=== PATIENT | male | born 1960 | race Caucasian/White ===

== ENCOUNTER 2021-06-28 12:15 | Emergency (ER) | payer OTHER, SELFPAY ==
[2021-06-28] VITALS (17 sets, daily range): BP systolic 157–188; BP diastolic 78–98; PULSE 80–87; RESP 16–20; TEMP 37.5; O2SAT 91–99
--- NOTE | ~2021-06-28 | XR_ITS ---
EXAMINATION: XR chest 1V portable DATE: 06/28/2021 15:01 INDICATION: Right lower quadrant abdominal pain. TECHNIQUE: A single frontal view of the chest was obtained on 2 radiographs. COMPARISON: Chest 2 views 02/27/2010, chest CT 07/07/2007 FINDINGS: There are lucencies in the lungs, consistent with emphysema. A calcified left lung nodule a nd calcified left hilar lymph nodes are consistent with old granulomatous disease. No pleural effusio n or pneumothorax. The heart size is normal. IMPRESSION: 1. Emphysema. Reviewed, dictated and finalized at location A. ENT CARE SECRETARY IMPRESSION: 1. Emphysema.
--- NOTE | ~2021-06-28 | CT_ITS ---
EXAMINATION: CT abdomen pelvis w con DATE: 06/28/2021 16:52 INDICATION: Right upper quadrant abdominal pain. TECHNIQUE: Computed tomography (CT) of the abdomen and pelvis was performed with 100 mL Omnipaque 350 intravenous contrast. Automated exposure control and iterative reconstruction technique were employe d. The dose-length product was 770.71 mGy-cm. COMPARISON: Chest CT 07/07/2007 FINDINGS: The visualized portions of the lung bases demonstrate emphysema. Calcified left lung nodule s and calcified left hilar lymph nodes are consistent with old granulomatous disease. There is mild d ependent atelectasis on the right. No pleural effusion. The heart size is normal. No pericardial effu oswaldo. The liver demonstrates a nodular surface contour, consistent with cirrhosis. Calcifications in the spleen are consistent with old granulomatous disease. The gallbladder, pancreas, and adrenal glan ds are normal. There are cysts in the kidneys measuring up to 9 mm on the left. There is an 11 mm mas s in left kidney lower pole measuring soft tissue attenuation. There is an umbilical hernia containin g fat. There is prominent fat in right inguinal canal that may be a hernia. The prostate is mildly en larged. There are no dilated loops of bowel. The appendix is normal. Paraesophageal varices are noted . There are no pathologically enlarged lymph nodes. There is no free intraperitoneal fluid. There is moderate thoracic spondylosis and mild lumbar spondylosis. IMPRESSION: 1. Cirrhosis of the liver with portal venous hypertension. 2. 11 mm left kidney mass, which may be a hemorrhagic cyst or a neoplasm. Abdomen CT without and with contrast is recommended. Reviewed, dictated and finalized at location A. POUNCER MACHINE OPERATOR IMPRESSION: 1. Cirrhosis of the liver with portal venous hypertension. 2. 11 mm left kidney mass, which may be a hemorrhagic cyst or a neoplasm. Abdom en CT without and with contrast is recommended.
[2021-06-28 16:01] LABS: Basophils Absolute Auto 0.1 K/mm3 (0.0-0.1); Basophils Percent Auto 0.5 % (0.2-1.2); Eosinophils Absolute Auto 0.1 K/mm3 (0-0.3); Eosinophils Percent Auto 1.2 % (0-4.4); Hematocrit 43.9 % (42.0-52.0); Hemoglobin 14.7 g/dL (14.0-18.0); Immature Granulocyte Absolute 0.04 K/mm3 (0.00-0.031); Immature Granulocyte Percent A 0.4 % (0-0.5); Lymphocytes Absolute Auto 2.48 K/mm3 (0.9-3.2); Lymphocytes Percent Auto 21.8 % (18.3-44.2); Mean Corpuscular HGB Conc 33.5 g/dl (32-36); Mean Corpuscular Hemoglobin 30.8 pg (26-34); Mean Platelet Volume 9.1 fl (7.4-10.4); Monocytes Absolute Auto 1.2 K/mm3 (0.1-0.6); Monocytes Percent Auto 10.9 % (2.6-8.5); Neutrophils Absolute Auto 7.4 K/mm3 (1.3-6.7); Neutrophils Percent Auto 65.2 % (45.5-73.1); Platelet Count Result 257 k/mm3 (150-375); Red Blood Count 4.77 M/mm3 (4.6-6.20); Red Cell Distribution Width 13.5 % (11.5-14.5); White Blood Count 11.4 K/mm3 (4.5-10.0)
[2021-06-28 16:09] LABS: Alanine Aminotransferase 18 U/L (4-50); Albumin Level 4.9 g/dL (3.5-5.1); Alkaline Phosphatase 84 U/L (38-126); Anion Gap 9 mmol/L (8-16); Aspartate Amino Transferase 28 U/L (17-59); Bilirubin,Total 0.7 mg/dL (0.2-1.3); Blood Urea Nitrogen 13 mg/dL (9-20); Calcium 9.5 mg/dL (8.4-10.2); Carbon Dioxide 30 mmol/L (22-30); Chloride 101 mmol/L (98-107); Estimated CRCL calculation 92 ml/min; Estimated Glomerular Filt Rate > 60; Glucose 92 mg/dL (65-110); Lipase 53 U/L (23-300); Sodium 140 mmol/L (137-145)
[2021-06-28] MEDS: ONDANSETRON INJ 4 MG/2 ML VIAL IV PUSH (16:09)
[2021-06-28] MEDS: HYDROmorphone HCL INJ (*CRX) 1 MG/ML SYR IV PUSH (16:10)
--- NOTE | 2021-06-28 16:58 | ED.ABDPAIN ---
HPI - Abdominal Pain General Chief Complaint: Abdominal Pain Stated Complaint: RUQ ABD PAIN X1D Time Seen by Provider: 06/28/21 15:08 Source: patient, family and RN notes reviewed Limitations: no limitations History of Present Illness HPI narrative: 61-year-old male presents to the emergency room evaluation of right upper quadrant pain that woke him from sleep at approximately 1:30 in the morning. Patient has no prior history of gallbladder disease. Patient states while he was sleeping he had onset of left upper quadrant pain. Patient does report associated nausea but denies any vomiting. Patient does report history of hepatitis C approximately 10 years ago for which he was treated with interferon. Patient also has history cirrhosis for which he has not had follow-up with a GI physician since his diagnosis. Related Data Allergies Allergy/AdvReac Type Severity Reaction Status Date / Time No Known Allergies Allergy Mild Verified 02/27/10 12:54 Review of Systems Review of Systems: CONSTITUTIONAL: Denies fever, chills, or sweats. EYES: Denies visual changes, redness, or discharge. ENT: Denies rhinorrhea, congestion, sore throat, or otalgia. CARDIOVASCULAR: Denies chest pain, palpitations, or edema. RESPIRATORY: Denies cough or dyspnea. GASTROINTESTINAL: Right upper quadrant abdominal pain with associated nausea GENITOURINARY: Denies dysuria or hematuria. SKIN: Denies rash or itching. MUSCULOSKELETAL: Denies back pain, joint pain, or myalgia. Exam Narrative: APPEARANCE: Well appearing, no pain, no distress, well-nourished. HEAD: normocephalic, atraumatic. EYES: PERRLA/EOMI, conjunctivae clear. NECK: Supple. No adenopathy, no masses. RESPIRATORY: Airway patent, respirations nonlabored. Clear to auscultation bilaterally, no rales, rhonchi, wheezing. CARDIOVASCULAR: Regular rate and rhythm without murmurs rubs or gallops. ABDOMINAL: Right upper quadrant tenderness to palpation. Otherwise benign abdomen. MUSCULOSKELETAL: Moves all extremities. Strength/ROM intact, No edema, No calf tenderness. NEURO: Alert. Cranial nerves II through XII intact. SKIN: Warm, dry. Normal Color Course Course Emergency Course: Patient was updated on the results of his imaging. Patient states he no longer has a GI physician that he follows up with. I did discuss the case with the nurse practitioner on-call for the patient's primary care physician. They were made aware of the patient's need to have follow-up with GI and additionally have follow up and imaging for the potential cyst on his kidney. Patient was updated on the plan for discharge home. Patient's pain was controlled in the emergency department. Patient was provided pain meds for home. All questions and concerns were addressed. Patient was well-appearing and in no distress at time of discharge from emergency room. Vital Signs Vital signs: Vital Signs Temperature 99.5 F 06/28/21 12:40 Pulse Rate 87 06/28/21 12:40 Respiratory Rate 16 06/28/21 12:40 Blood Pressure 177/98 H 06/28/21 12:40 Pulse Oximetry 99 06/28/21 12:40 Temperature 99.5 F 06/28/21 12:40 Pulse Rate 80 06/28/21 14:52 Respiratory Rate 20 06/28/21 14:52 Blood Pressure 164/94 H 06/28/21 15:16 Pulse Oximetry 91 06/28/21 18:15 MDM - Abdominal Pain Differential Diagnosis Differential diagnosis: Likely abdominal pain Lab Data Attestation: I reviewed the patient's lab results. Result diagrams: 06/28/21 15:40 06/28/21 15:40 Labs: Lab Results 06/28/21 06/28/21 06/28/21 Range/Units 15:40 15:40 18:10 WBC 11.4 H (4.5-10.0) K/mm3 RBC 4.77 (4.6-6.20) M/mm3 Hgb 14.7 (14.0-18.0) g/dL Hct 43.9 (42.0-52.0) % MCV 92.0 (80-100) fl MCH 30.8 (26-34) pg MCHC 33.5 (32-36) g/dl RDW 13.5 (11.5-14.5) % Plt Count 257 (150-375) k/mm3 MPV 9.1 (7.4-10.4) fl Immature Gran % (Auto) 0.4 (0-0.5) % Neut % (Auto) 65.2 (45.5-7
[2021-06-28] MEDS: SODIUM CHLORIDE 0.9% IV 1,000 ML 999 ML IV CONT (17:36)
[2021-06-28 18:36] LABS: Add Urine Microscopic? YES; Appearance Urine Clear (Clear); Bilirubin Urine Negative (Negative); Blood Urine 2+ (Negative); Color Urine Yellow (Yellow); Glucose Urine UA Negative (Negative); Ketones Urine Negative (Negative); Leukocyte Esterase Ur Negative LEU/UL (Negative); Mucus Urine Rare /lpf; Nitrate Urine Negative (Negative); Protein Urine Negative (Negative); Urobilinogen Urine Negative mg/dL (<2.0); WBC Urine 0-3 /hpf
[2021-06-28 18:44] LABS: Specific Grav Ur 1.033 (1.001-1.035)
== END 2021-06-28 18:40 | disposition home or self-care (01) ==
PROVIDERS: Emergency Provider Emergency Medicine; PCP Internal Medicine
DX: K76.6 Portal hypertension (principal); K74.60 Unspecified cirrhosis of liver; Z86.19 Personal history of other infectious and parasitic diseases; J43.9 Emphysema, unspecified; N28.89 Other specified disorders of kidney and ureter
CPT/HCPCS: 36415; 71045; 74177; 80053; 81001; 83690; 85025; 96361; 96374; 96375; 99284; J1170; J2405; J7030; Q9967

== ENCOUNTER 2021-07-26 09:38 | Outpatient (CLI) | payer OTHER, SELFPAY ==
--- NOTE | ~2021-07-26 | CT_ITS ---
EXAMINATION: CT abdomen wo/w con INDICATION: Essential hypertension, cirrhosis, indeterminate left kidney mass TECHNIQUE: Computed tomographic images of the abdomen were obtained prior to and following the admini stration of 100 cc of Omnipaque 350 intravenous contrast. The dose-length product (DLP) was 1166.53 m Gy-cm. Automated exposure control and iterative reconstruction technique were employed. COMPARISON: 06/28/2021 FINDINGS: There is mild emphysema of the visualized lower lobes. The heart size is normal. There is n odularity of the liver surface. Punctate calcifications in an otherwise normal spleen likely represen t healed granulomatous disease. The pancreas, gallbladder, and adrenal glands are normal. The right k idney is unremarkable. There is a 10 mm mass of the left kidney lower pole without definite enhanceme nt after contrast administration. There are no pathologically enlarged abdominal lymph nodes. A small fat-containing umbilical hernia is noted. There is no free intraperitoneal gas or evidence of bowel obstruction. IMPRESSION: 1. Probable hemorrhagic or proteinaceous cyst of the left kidney. Follow-up MRI or CT without and wit h contrast in 6-12 months is recommended. 2. Cirrhosis. Reviewed, dictated and finalized at location A. MACY SALESPERSON IMPRESSION: 1. Probable hemorrhagic or proteinaceous cyst of the left kidney. Follow-up MRI or CT without and with contrast in 6-12 months is recommended. 2. Cirrhosis.
== END 2021-07-26 09:39 | disposition home or self-care (01) ==
LOC: ANHIMG 09:44
PROVIDERS: PCP Internal Medicine; Visit Provider Nurse Practitioner Adult Health
DX: I10 Essential (primary) hypertension (principal); K74.60 Unspecified cirrhosis of liver; B19.20 Unspecified viral hepatitis C without hepatic coma; N28.1 Cyst of kidney, acquired
CPT/HCPCS: 74170; Q9967